=== PATIENT | male | born 1940 | race Caucasian/White ===

== ENCOUNTER → 2020-09-14 | Emergency (ER) | payer OTHER ==
[~2020-09-14] VITALS: Ht 167.6 cm; Wt 86.2 kg
[~2020-09-14] MED LIST: ALBUTEROL2.5 MG/3 M IH; INTESTINEX1 CA1 PO; KETO10TA2 PO; NORFLEX100 MG PO; RESPTHERAMACH IH; ZANTAC150 MG PO
== END | disposition left against medical advice (07) ==
LOC: ER 14:38
DX: S20.212A Contusion of left front wall of thorax, initial encounter (principal); W18.39XA Other fall on same level, initial encounter; Y93.89 Activity, other specified; Y92.488 Other paved roadways as the place of occurrence of the external cause; Y99.8 Other external cause status

== ENCOUNTER 2022-05-22 16:29 | Emergency (ER) | payer OTHER ==
[~2022-05-22] VITALS: Ht 167.6 cm; Wt 79.8 kg
[~2022-05-22 16:29] MED LIST changes: +COZAAR25 MG; +MEDROLPACK PO; +TUSNEL LIQUID178 ML PO; +XOPENEX0.63 MG/3 IH; +ZITHROMAX500 MG PO
== END 2022-05-22 21:12 | disposition home or self-care (01) ==
LOC: ER 16:29
DX: F41.8 Other specified anxiety disorders (principal); I10 Essential (primary) hypertension; E11.9 Type 2 diabetes mellitus without complications; Z79.84 Long term (current) use of oral hypoglycemic drugs

== ENCOUNTER 2022-05-24 14:46 | Outpatient (CLI) | payer OTHER | END 2022-05-24 15:00 | disposition home or self-care (01) | LOC: TOM 14:46 | PROVIDERS: ATTEND General Practice | DX: R41.82 Altered mental status, unspecified (principal); R40.4 Transient alteration of awareness; R47.81 Slurred speech; R46.4 Slowness and poor responsiveness; R05.9 Cough, unspecified; J44.1 Chronic obstructive pulmonary disease with (acute) exacerbation; F17.218 Nicotine dependence, cigarettes, with other nicotine-induced disorders; Z85.46 Personal history of malignant neoplasm of prostate ==

== ENCOUNTER 2023-05-29 11:31 | Emergency (ER) | payer OTHER ==
[~2023-05-29] VITALS: Ht 172.7 cm; Wt 72.6 kg
[2023-05-29] MEDS ORDERED: JARDIANCE10 MG PO (11:50)
[2023-05-29] MEDS ORDERED: SIMVASTATIN5 MG (11:50)
[2023-05-29] MEDS ORDERED: ARICEPT10 MG PO (11:50)
== END 2023-05-29 17:04 | disposition home or self-care (01) ==
LOC: ER 11:31
DX: R60.0 Localized edema (principal); E11.9 Type 2 diabetes mellitus without complications; Z79.84 Long term (current) use of oral hypoglycemic drugs; I10 Essential (primary) hypertension; G30.9 Alzheimer's disease, unspecified; F02.80 Dementia in other diseases classified elsewhere, unspecified severity, without behavioral disturbance, psychotic disturbance, mood disturbance, and anxiety; J90 Pleural effusion, not elsewhere classified

== ENCOUNTER 2023-07-09 18:39 | Emergency (ER) | payer OTHER ==
[~2023-07-09] VITALS: Ht 167.6 cm; Wt 81.6 kg
[~2023-07-09 18:39] MED LIST changes: +ARICEPT10 MG PO; +JARDIANCE10 MG PO; +SIMVASTATIN5 MG
[2023-07-09 19:47] LABS: HEMATOCRIT 37.6 % (39.0-48.0); HEMOGLOBIN 11.8 g/dL (13-16.00); MEAN CELL VOLUME 82.2 fL (80.0-100.00); MEAN CORPUSCULAR HEMOGLOBIN 25.8 pg (27.00-32.0); MEAN CORPUSCULAR HGB CONC 31.3 g/dl (32.0-36.0); PLATELET COUNT 196 K/uL (150-450); RED BLOOD COUNT 4.57 M/uL (4.00-6.00); RED CELL DISTRIBUTION WIDTH 18.4 % (11.5-14.5)
[2023-07-09 20:07] LABS: CALCIUM 8.9 mg/dL (8.5-10.1); CREATININE SERUM 1.5 mg/dL (0.70-1.30); GFR 44.69; POTASSIUM 3.87 mEq/L (3.5-5.1)
[2023-07-09 22:48] LABS: ABG PH 7.439 (7.35-7.45); ABG PO2 68.6 mmHg (80-100); ABG pCO2 39.7 mmHg (35-45); BASE EXCESS 2.1 mmol/l; BICARBONATE 26.3 mmol/l (23-25); SaO2 94.3 %
[2023-07-09] MEDS ORDERED: IPRATROPIU0.2 MG/1 M IH (23:44)
[2023-07-09] MEDS ORDERED: LASIX20 MG PO (23:44)
== END 2023-07-10 00:25 | disposition home or self-care (01) ==
LOC: ER 18:39
PROVIDERS: General Practice
DX: R60.0 Localized edema (principal); J45.909 Unspecified asthma, uncomplicated; E78.00 Pure hypercholesterolemia, unspecified; I10 Essential (primary) hypertension
CPT/HCPCS: 71045; 82803; 94640; 99284; J1940; J2930

== ENCOUNTER 2023-08-16 12:56 | Inpatient (IN) | payer OTHER ==
[~2023-08-16] VITALS: Ht 165.1 cm; Wt 77.1 kg
[~2023-08-16 12:56] MED LIST changes: +IPRATROPIU0.2 MG/1 M IH; +LASIX20 MG PO
[2023-08-16] MEDS ORDERED: TRAZODONE HCL50 MG PO (13:06)
[2023-08-16 15:44] LABS: HEMATOCRIT 40.4 % (39.0-48.0); HEMOGLOBIN 13.3 g/dL (13-16.00); MEAN CELL VOLUME 82.1 fL (80.0-100.00); MEAN CORPUSCULAR HGB CONC 32.9 g/dl (32.0-36.0); PLATELET COUNT 222 K/uL (150-450); RED BLOOD COUNT 4.92 M/uL (4.00-6.00); RED CELL DISTRIBUTION WIDTH 19.4 % (11.5-14.5)
[2023-08-16 15:59] LABS: INR 1.29; PARTIAL THROMBOPLASTIN TIME 29.2 SECONDS (22.0-34.0); PROTHROMBIN TIME 13.3 SECONDS (9.0-11.5)
[2023-08-16 16:13] LABS: ALBUMIN 3.3 gm/dL (3.4-5.0); BILIRUBIN TOTAL 1.85 mg/dL (0.3-1.2); CALCIUM 9.5 mg/dL (8.5-10.1); CREATININE SERUM 1.39 mg/dL (0.70-1.30); GFR 48.8; GLOBULINA 3.6 G/DL (2.4-3.5); POTASSIUM 3.14 mEq/L (3.5-5.1); TOTAL PROTEIN 6.9 gm/dL (6.4-8.2)
[2023-08-16 16:59] LABS: C-REACTIVE PROTEIN 0.69 MG/DL (0.00-0.29)
[2023-08-17 01:21] LABS: CKMB 3.6 NG/ML (0.5-3.6)
[2023-08-17 02:39] LABS: URINE APPEARANCE CLEAR; URINE COLOR YELLOW; URINE GLUCOSE NEGATIVE (NEGATIVE)
[2023-08-17 02:40] LABS: PH,URINE 6.5; URINE BILIRRUBIN NEGATIVE (NEGATIVE); URINE BLOOD SMALL; URINE LEUKOCYTE NEGATIVE; URINE NITRATE NEGATIVE; URINE PROTEIN NEGATIVE (NEGATIVE)
[2023-08-17 02:41] LABS: URINE BACTERIA SOME; URINE MUCUS NEGATIVE; URINE RBC 19-25 /HPF
[2023-08-17 07:27] LABS: URINE APPEARANCE Clear; URINE BILIRRUBIN Negative (NEGATIVE); URINE BLOOD Large; URINE COLOR Yellow; URINE GLUCOSE Negative (NEGATIVE); URINE LEUKOCYTE Small; URINE NITRATE Negative; URINE PROTEIN Negative (NEGATIVE); URINE UROBILINOGEN 0.2 E.U./dl
[2023-08-17 07:31] LABS: URINE BACTERIA 61.7 uL (0.0-1933); URINE EPITHELIAL CELLS 4.4 uL (0.0-38.8); URINE RBC 209.9 uL (0.0-20.8); URINE WBC 14.9 uL (0.0-23.2)
[2023-08-17 07:46] LABS: HEMATOCRIT 37.5 % (39.0-48.0); HEMOGLOBIN 12.5 g/dL (13-16.00); MEAN CELL VOLUME 82.1 fL (80.0-100.00); MEAN CORPUSCULAR HEMOGLOBIN 27.4 pg (27.00-32.0); MEAN CORPUSCULAR HGB CONC 33.3 g/dl (32.0-36.0); PLATELET COUNT 202 K/uL (150-450); RED BLOOD COUNT 4.56 M/uL (4.00-6.00); RED CELL DISTRIBUTION WIDTH 19.1 % (11.5-14.5)
[2023-08-17 07:49] LABS: CKMB 2.8 NG/ML (0.5-3.6)
[2023-08-17 07:54] LABS: ERYTHROCYTE SEDIMENTATION RATE 13 mm/hr; INR 1.32; PARTIAL THROMBOPLASTIN TIME 30.6 SECONDS (22.0-34.0); PROTHROMBIN TIME 13.6 SECONDS (9.0-11.5)
[2023-08-17 08:06] LABS: ALBUMIN 2.9 gm/dL (3.4-5.0); BILIRUBIN TOTAL 1.42 mg/dL (0.3-1.2); BILIRUBIN,CONJUGATED 0.96 mg/dL (0.0-0.2); BILIRUBIN,UNCONJUGATED 0.46 mg/dL (0.0-0.6); CALCIUM 8.6 mg/dL (8.5-10.1); CREATININE SERUM 1.23 mg/dL (0.70-1.30); GFR 56.2; GLOBULINA 2.9 G/DL (2.4-3.5); TOTAL PROTEIN 5.8 gm/dL (6.4-8.2)
[2023-08-17 08:09] LABS: C-REACTIVE PROTEIN 1.06 MG/DL (0.00-0.29)
[2023-08-17 08:12] LABS: POTASSIUM 2.7 mEq/L (3.5-5.1)
[2023-08-17 13:21] LABS: CKMB 2.9 NG/ML (0.5-3.6)
[2023-08-18 07:33] LABS: ALBUMIN 2.6 gm/dL (3.4-5.0); BILIRUBIN TOTAL 1.56 mg/dL (0.3-1.2); CALCIUM 8.3 mg/dL (8.5-10.1); CREATININE SERUM 1.41 mg/dL (0.70-1.30); GLOBULINA 2.4 G/DL (2.4-3.5); MAGNESIUM 1.8 mg/dL (1.8-2.4); PHOSPHOROUS 3.4 mg/dL (2.5-4.9); POTASSIUM 3.23 mEq/L (3.5-5.1)
[2023-08-19 08:22] LABS: CALCIUM 8.7 mg/dL (8.5-10.1); CREATININE SERUM 1.38 mg/dL (0.70-1.30); GFR 49.21; POTASSIUM 4.25 mEq/L (3.5-5.1)
== END 2023-08-20 20:21 | disposition home or self-care (01) | DRG 603 ==
LOC: ER 12:57 → SURH 20:54
PROVIDERS: General Practice; Internal Medicine; ADMIT Internal Medicine; ATTEND Internal Medicine
PROC: B54DZZZ Ultrasonography of Bilateral Lower Extremity Veins (ICD-10-PCS; principal; 2023-08-16)
PROC: B44HZZZ Ultrasonography of Bilateral Lower Extremity Arteries (ICD-10-PCS; 2023-08-16)
PROC: B246ZZZ Ultrasonography of Right and Left Heart (ICD-10-PCS; 2023-08-17)
PROC: 3E0F7GC Introduction of Other Therapeutic Substance into Respiratory Tract, Via Natural or Artificial Opening (ICD-10-PCS; 2023-08-17)
DX: L03.116 Cellulitis of left lower limb (principal); N17.8 Other acute kidney failure; B95.61 Methicillin susceptible Staphylococcus aureus infection as the cause of diseases classified elsewhere; J45.998 Other asthma; I12.9 Hypertensive chronic kidney disease with stage 1 through stage 4 chronic kidney disease, or unspecified chronic kidney disease; E11.22 Type 2 diabetes mellitus with diabetic chronic kidney disease; Z79.4 Long term (current) use of insulin; Z87.891 Personal history of nicotine dependence; E78.49 Other hyperlipidemia; R60.0 Localized edema